=== PATIENT | male | born 1965 | race Caucasian/White ===

== ENCOUNTER → 2016-06-03 | Outpatient (CLI) | payer BC, OTHER | LOC: M LAB 11:16 | PROVIDERS: ATTEND Family Medicine | DX: E29.1 Testicular hypofunction (principal) ==

== ENCOUNTER → 2016-10-14 | Outpatient (CLI) | payer BC, OTHER | LOC: M LAB 15:36 | PROVIDERS: ATTEND Family Medicine | DX: E29.1 Testicular hypofunction (principal) ==

== ENCOUNTER → 2017-04-13 | Outpatient (CLI) | payer BC, OTHER | LOC: M LAB 11:09 | PROVIDERS: ATTEND Family Medicine | DX: E29.1 Testicular hypofunction (principal); E11.9 Type 2 diabetes mellitus without complications; R53.83 Other fatigue ==

== ENCOUNTER 2017-07-15 12:35 | Inpatient (IN) | payer BC, OTHER ==
[2017-07-15 13:50] LABS: BASO # 0.1 10^3/uL (0.0-0.2); BASO % 1.2 % (0.0-1.0); EOS # 0.2 10^3/uL (0.0-0.50); EOS % 3.3 % (0.0-3.0); HEMATOCRIT 53.3 % (42.0-52.0); IMMATURE GRANULOCYTE % 0.4 % (0-3.0); LYMPH # 2.2 10^3/uL (1.5-4.5); LYMPH % 32.9 % (24.0-44.0); MEAN CORPUSCULAR HEMOGLOBIN 28.5 pg (27.0-33.0); MEAN CORPUSCULAR HGB CONC 34.5 g/dl (32.0-36.5); MEAN CORPUSCULAR VOLUME 82.5 fl (80.0-96.0); MONO # 0.4 10^3/uL (0.0-0.8); MONO % 6.1 % (0.0-5.0); NEUTROPHILS # 3.8 10^3/uL (1.8-7.7); NEUTROPHILS % 56.1 % (36.0-66.0); PLATELET COUNT, AUTOMATED 255 10^3/uL (150-450); RED BLOOD COUNT 6.46 10^6/uL (4.30-6.10); RED CELL DISTRIBUTION WIDTH 12.7 % (11.5-14.5); WHITE BLOOD COUNT 6.7 10^3/uL (4.0-10.0)
[2017-07-15 13:51] LABS: HEMOGLOBIN 18.4 g/dl (14.0-18.0); SUSPECT SAMPLE POS FLAG
[2017-07-15 13:52] LABS: INR 0.93; PROTHROMBIN TIME 12.5 SECONDS (12.4-14.5)
[2017-07-15 13:53] LABS: PARTIAL THROMBOPLASTIN TIME 26.8 SECONDS (26.8-37.9)
[2017-07-15 14:05] LABS: ANION GAP 6 MEQ/L (8-16); BLOOD UREA NITROGEN 18 MG/DL (7-18); CALCIUM LEVEL 9.4 MG/DL (8.5-10.1); CARBON DIOXIDE LEVEL 29 MEQ/L (21-32); CHLORIDE LEVEL 102 MEQ/L (98-107); CPK CREATINE PHOSPHOKINASE 70 U/L (39-308); CREATININE FOR GFR 1.28 MG/DL (0.70-1.30); GLOMERULAR FILTRATION RATE > 60.0 (>56); GLUCOSE, FASTING 294 MG/DL (70-100); POTASSIUM SERUM 4.2 MEQ/L (3.5-5.1); SODIUM LEVEL 137 MEQ/L (136-145); TROPONIN I < 0.02 NG/ML (< 0.10)
[2017-07-15 14:06] LABS: MB/CK RELATIVE INDEX 1.42 (< OR =4)
[2017-07-15] MEDS: ASPIRIN 81 MG CHEW TABLET PO (14:31)
[2017-07-15] MEDS ORDERED: DEXTROSE 50% 50 ML SYRINGE IV (15:15)
[2017-07-15] MEDS ORDERED: GLUCOSE 4 GM CHEW TABLET PO (15:15)
[2017-07-15] MEDS ORDERED: GLUCAGON FOR INJ 1 MG VIAL (J1610) SC (15:15)
[2017-07-15 17:38] LABS: BEDSIDE GLUCOSE 216 MG/DL (70-105)
[2017-07-15] MEDS: HumaLOG INSULIN (NovoLOG) PER UNIT SC ×2 (18:19→20:35)
[2017-07-15 20:11] LABS: CPK CREATINE PHOSPHOKINASE 65 U/L (39-308); MB/CK RELATIVE INDEX 1.53 (< OR =4); TROPONIN I < 0.02 NG/ML (< 0.10)
[2017-07-15] MEDS: ATORVASTATIN 20 MG TAB PO (20:34)
[2017-07-16 01:53] LABS: BEDSIDE GLUCOSE 256 MG/DL (70-105)
[2017-07-16 03:22] LABS: BASO # 0.1 10^3/uL (0.0-0.2); BASO % 1.1 % (0.0-1.0); EOS # 0.3 10^3/uL (0.0-0.50); EOS % 3.3 % (0.0-3.0); HEMATOCRIT 49.8 % (42.0-52.0); HEMOGLOBIN 16.9 g/dl (14.0-18.0); IMMATURE GRANULOCYTE % 0.3 % (0-3.0); LYMPH # 3.2 10^3/uL (1.5-4.5); LYMPH % 39.9 % (24.0-44.0); MEAN CORPUSCULAR HGB CONC 33.9 g/dl (32.0-36.5); MEAN CORPUSCULAR VOLUME 82.5 fl (80.0-96.0); MONO # 0.5 10^3/uL (0.0-0.8); MONO % 6.5 % (0.0-5.0); NEUTROPHILS # 3.9 10^3/uL (1.8-7.7); NEUTROPHILS % 48.9 % (36.0-66.0); PLATELET COUNT, AUTOMATED 263 10^3/uL (150-450); RED BLOOD COUNT 6.04 10^6/uL (4.30-6.10); RED CELL DISTRIBUTION WIDTH 12.9 % (11.5-14.5)
[2017-07-16 04:05] LABS: ALBUMIN 3.7 GM/DL (3.2-5.2); ALBUMIN/GLOBULIN RATIO 1.23 (1.00-1.93); ALKALINE PHOSPHATASE 75 U/L (45-117); ALT/SGPT 31 U/L (12-78); ANION GAP 8 MEQ/L (8-16); AST/SGOT 19 U/L (7-37); BILIRUBIN,TOTAL 1.1 MG/DL (0.2-1.0); BLOOD UREA NITROGEN 20 MG/DL (7-18); CALCIUM LEVEL 8.3 MG/DL (8.5-10.1); CARBON DIOXIDE LEVEL 27 MEQ/L (21-32); CHLORIDE LEVEL 105 MEQ/L (98-107); CHOLESTEROL LEVEL 164 MG/DL (<200); CHOLESTEROL RISK RATIO 3.565 (<5); CPK CREATINE PHOSPHOKINASE 70 U/L (39-308); CREATININE FOR GFR 1.23 MG/DL (0.70-1.30); FREE T4 0.57 NG/DL (0.76-1.46); GLOMERULAR FILTRATION RATE > 60.0 (>56); GLUCOSE, FASTING 209 MG/DL (70-100); HDL CHOLESTEROL 46 MG/DL (>40); NON-HDL-C 118 MG/DL; SODIUM LEVEL 140 MEQ/L (136-145); TOTAL PROTEIN 6.7 GM/DL (6.4-8.2); TRIGLYCERIDES LEVEL 135 MG/DL (<150); TROPONIN I < 0.02 NG/ML (< 0.10)
[2017-07-16 04:06] LABS: MB/CK RELATIVE INDEX 1.42 (< OR =4)
[2017-07-16] MEDS: LEVOTHYROXINE 25MCG TABLET (0.025MG) PO (06:01)
[2017-07-16 08:21] LABS: BEDSIDE GLUCOSE 228 MG/DL (70-105)
[2017-07-16] MEDS: ALLOPURINOL 300 MG TAB PO (08:24)
[2017-07-16] MEDS: ASPIRIN 81 MG CHEW TABLET PO (08:24)
[2017-07-16] MEDS: HumaLOG INSULIN (NovoLOG) PER UNIT SC ×4 (08:25→20:46)
[2017-07-16] MEDS ORDERED: ASPIRIN 81 MG CHEW TABLET PO (09:00)
[2017-07-16 10:42] LABS: CPK CREATINE PHOSPHOKINASE 71 U/L (39-308); TROPONIN I < 0.02 NG/ML (< 0.10)
[2017-07-16 11:32] LABS: BEDSIDE GLUCOSE 267 MG/DL (70-105)
[2017-07-16] MEDS ORDERED: SLF 3 ML SYR IV (15:15)
[2017-07-16 20:22] LABS: BEDSIDE GLUCOSE 206 MG/DL (70-105)
[2017-07-16 20:46] LABS: BEDSIDE GLUCOSE 301 MG/DL (70-105)
[2017-07-16] MEDS: ATORVASTATIN 20 MG TAB PO (20:46)
[2017-07-16] MEDS: SLF 3 ML SYR IV (20:47)
[2017-07-16] MEDS: LEVEMIR (INSULIN DETEMIR) 1 UNITS/0.01ML SC (20:47)
[2017-07-17] MEDS: LEVOTHYROXINE 25MCG TABLET (0.025MG) PO (05:30)
[2017-07-17] MEDS: SLF 3 ML SYR IV (05:30)
[2017-07-17 05:56] LABS: BASO # 0.1 10^3/uL (0.0-0.2); BASO % 1.6 % (0.0-1.0); EOS # 0.3 10^3/uL (0.0-0.50); EOS % 4.3 % (0.0-3.0); HEMATOCRIT 49.7 % (42.0-52.0); HEMOGLOBIN 17.2 g/dl (14.0-18.0); IMMATURE GRANULOCYTE % 0.6 % (0-3.0); LYMPH # 2.8 10^3/uL (1.5-4.5); LYMPH % 35.3 % (24.0-44.0); MEAN CORPUSCULAR HEMOGLOBIN 28.9 pg (27.0-33.0); MEAN CORPUSCULAR HGB CONC 34.6 g/dl (32.0-36.5); MEAN CORPUSCULAR VOLUME 83.4 fl (80.0-96.0); MONO # 0.5 10^3/uL (0.0-0.8); MONO % 6.8 % (0.0-5.0); NEUTROPHILS # 4.1 10^3/uL (1.8-7.7); NEUTROPHILS % 51.4 % (36.0-66.0); PLATELET COUNT, AUTOMATED 250 10^3/uL (150-450); RED BLOOD COUNT 5.96 10^6/uL (4.30-6.10); RED CELL DISTRIBUTION WIDTH 12.7 % (11.5-14.5)
[2017-07-17 06:30] LABS: ALBUMIN 3.4 GM/DL (3.2-5.2); ALBUMIN/GLOBULIN RATIO 0.97 (1.00-1.93); ALKALINE PHOSPHATASE 74 U/L (45-117); ALT/SGPT 26 U/L (12-78); ANION GAP 5 MEQ/L (8-16); AST/SGOT 16 U/L (7-37); BILIRUBIN,TOTAL 1.2 MG/DL (0.2-1.0); BLOOD UREA NITROGEN 21 MG/DL (7-18); CALCIUM LEVEL 8.3 MG/DL (8.5-10.1); CARBON DIOXIDE LEVEL 28 MEQ/L (21-32); CHLORIDE LEVEL 107 MEQ/L (98-107); CREATININE FOR GFR 1.24 MG/DL (0.70-1.30); GLOMERULAR FILTRATION RATE > 60.0 (>56); GLUCOSE, FASTING 203 MG/DL (70-100); SODIUM LEVEL 140 MEQ/L (136-145); TOTAL PROTEIN 6.9 GM/DL (6.4-8.2)
[2017-07-17] MEDS: ASPIRIN 81 MG CHEW TABLET PO (07:54)
[2017-07-17] MEDS: HumaLOG INSULIN (NovoLOG) PER UNIT SC (07:54)
[2017-07-17] MEDS: ALLOPURINOL 300 MG TAB PO (07:54)
[2017-07-17 10:30] LABS: ESTIMATED AVERAGE GLUCOSE 258 MG/DL (60-110); HEMOGLOBIN A1c 10.6 %
== END 2017-07-17 11:37 | disposition home or self-care (01) | DRG 47 ==
LOC: M ED 12:35 → M ED INP 15:54 → M PCU 17:22
DX: G45.9 Transient cerebral ischemic attack, unspecified (principal); I10 Essential (primary) hypertension; E78.5 Hyperlipidemia, unspecified; M10.9 Gout, unspecified; E11.9 Type 2 diabetes mellitus without complications; E66.9 Obesity, unspecified; Z68.30 Body mass index [BMI] 30.0-30.9, adult; E03.9 Hypothyroidism, unspecified; Z79.4 Long term (current) use of insulin; Z79.899 Other long term (current) drug therapy

== ENCOUNTER 2017-07-21 16:24 | Inpatient (IN) | payer BC, OTHER ==
[2017-07-21] MEDS: NS 1,000 ML IV (18:11)
[2017-07-21 18:15] LABS: BEDSIDE GLUCOSE 178 MG/DL (70-105)
[2017-07-21 18:16] LABS: BASO # 0.1 10^3/uL (0.0-0.2); BASO % 0.8 % (0.0-1.0); EOS # 0.2 10^3/uL (0.0-0.50); HEMATOCRIT 51.2 % (42.0-52.0); HEMOGLOBIN 17.6 g/dl (14.0-18.0); IMMATURE GRANULOCYTE % 0.3 % (0-3.0); LYMPH # 2.4 10^3/uL (1.5-4.5); LYMPH % 34.3 % (24.0-44.0); MEAN CORPUSCULAR HEMOGLOBIN 28.3 pg (27.0-33.0); MEAN CORPUSCULAR HGB CONC 34.4 g/dl (32.0-36.5); MEAN CORPUSCULAR VOLUME 82.2 fl (80.0-96.0); MONO # 0.5 10^3/uL (0.0-0.8); MONO % 6.6 % (0.0-5.0); NEUTROPHILS # 3.9 10^3/uL (1.8-7.7); PLATELET COUNT, AUTOMATED 284 10^3/uL (150-450); RED BLOOD COUNT 6.23 10^6/uL (4.30-6.10); RED CELL DISTRIBUTION WIDTH 12.8 % (11.5-14.5); WHITE BLOOD COUNT 7.1 10^3/uL (4.0-10.0)
[2017-07-21 18:43] LABS: AMPHETAMINES LEVEL URINE NEGATIVE (NEGATIVE); BARBITURATES URINE NEGATIVE (NEGATIVE); BENZODIAZEPINES URINE NEGATIVE (NEGATIVE); CANNABINOIDS URINE NEGATIVE (NEGATIVE); COCAINE METABOLITE URINE NEGATIVE (NEGATIVE); METHADONE URINE NEGATIVE (NEGATIVE); OPIATES URINE NEGATIVE (NEGATIVE); PHENCYCLIDINE URINE NEGATIVE (NEGATIVE)
[2017-07-21 18:52] LABS: ALBUMIN 4.2 GM/DL (3.2-5.2); ALBUMIN/GLOBULIN RATIO 1.24 (1.00-1.93); ALKALINE PHOSPHATASE 75 U/L (45-117); ALT/SGPT 24 U/L (12-78); ANION GAP 9 MEQ/L (8-16); AST/SGOT 21 U/L (7-37); BILIRUBIN,DIRECT 0.4 MG/DL (0.0-0.2); BILIRUBIN,TOTAL 1.9 MG/DL (0.2-1.0); BLOOD UREA NITROGEN 23 MG/DL (7-18); CALCIUM LEVEL 9.7 MG/DL (8.5-10.1); CARBON DIOXIDE LEVEL 30 MEQ/L (21-32); CHLORIDE LEVEL 98 MEQ/L (98-107); CPK CREATINE PHOSPHOKINASE 137 U/L (39-308); CREATININE FOR GFR 1.23 MG/DL (0.70-1.30); GLOMERULAR FILTRATION RATE > 60.0 (>56); GLUCOSE, FASTING 159 MG/DL (70-100); POTASSIUM SERUM 4.1 MEQ/L (3.5-5.1); SALICYLATE LEVEL < 1.7 MG/DL (5.0-30.0); SODIUM LEVEL 137 MEQ/L (136-145); TOTAL PROTEIN 7.6 GM/DL (6.4-8.2); TROPONIN I < 0.02 NG/ML (< 0.10)
[2017-07-21 18:58] LABS: MB/CK RELATIVE INDEX 0.72 (< OR =4)
[2017-07-21 19:01] LABS: ACETAMINOPHEN LEVEL < 2.0 UG/ML (10.0-30.0); ETHYL ALCOHOL (ETHANOL) < 0.003 % (0.000-0.010)
[2017-07-21] MEDS ORDERED: GLUCOSE 4 GM CHEW TABLET PO (20:45)
[2017-07-21] MEDS ORDERED: ACETAMINOPHEN TAB 650MG DOSE (2X325MG) PO (20:45)
[2017-07-21] MEDS ORDERED: DEXTROSE 50% 50 ML SYRINGE IV (20:45)
[2017-07-21] MEDS ORDERED: BISACODYL 5 MG TAB PO (20:45)
[2017-07-21] MEDS ORDERED: ONDANSETRON 4 MG TAB (S0181) PO (20:45)
[2017-07-21] MEDS ORDERED: GLUCAGON FOR INJ 1 MG VIAL (J1610) SC (20:45)
[2017-07-21 21:25] LABS: FREE T4 0.76 NG/DL (0.76-1.46)
[2017-07-21] MEDS: HumaLOG INSULIN (NovoLOG) PER UNIT SC (23:01)
[2017-07-21] MEDS: ATORVASTATIN 20 MG TAB PO (23:07)
[2017-07-21] MEDS: LOSARTAN 50 MG TAB PO (23:07)
[2017-07-21] MEDS: LEVEMIR (INSULIN DETEMIR) 1 UNITS/0.01ML SC (23:08)
[2017-07-21] MEDS: hydroCHLOROthiazide 25 MG TAB PO (23:08)
[2017-07-22 00:23] LABS: CPK CREATINE PHOSPHOKINASE 207 U/L (39-308); MB/CK RELATIVE INDEX 0.48 (< OR =4); TROPONIN I < 0.02 NG/ML (< 0.10)
[2017-07-22 03:01] LABS: BEDSIDE GLUCOSE 143 MG/DL (70-105)
[2017-07-22] MEDS: LEVOTHYROXINE 50MCG TABLET (0.05MG) PO (06:27)
[2017-07-22 06:59] LABS: BASO # 0.1 10^3/uL (0.0-0.2); BASO % 1.1 % (0.0-1.0); EOS # 0.2 10^3/uL (0.0-0.50); HEMOGLOBIN 17.7 g/dl (14.0-18.0); IMMATURE GRANULOCYTE % 0.4 % (0-3.0); LYMPH # 2.6 10^3/uL (1.5-4.5); MEAN CORPUSCULAR HEMOGLOBIN 28.5 pg (27.0-33.0); MEAN CORPUSCULAR HGB CONC 34.7 g/dl (32.0-36.5); MEAN CORPUSCULAR VOLUME 82.3 fl (80.0-96.0); MONO # 0.5 10^3/uL (0.0-0.8); MONO % 6.7 % (0.0-5.0); NEUTROPHILS % 53.8 % (36.0-66.0); PLATELET COUNT, AUTOMATED 279 10^3/uL (150-450); RED CELL DISTRIBUTION WIDTH 12.7 % (11.5-14.5); WHITE BLOOD COUNT 7.4 10^3/uL (4.0-10.0)
[2017-07-22 07:18] LABS: ALBUMIN 3.9 GM/DL (3.2-5.2); ALBUMIN/GLOBULIN RATIO 1.08 (1.00-1.93); ALKALINE PHOSPHATASE 71 U/L (45-117); ALT/SGPT 21 U/L (12-78); ANION GAP 8 MEQ/L (8-16); AST/SGOT 13 U/L (7-37); BILIRUBIN,TOTAL 2.2 MG/DL (0.2-1.0); BLOOD UREA NITROGEN 20 MG/DL (7-18); CALCIUM LEVEL 9.2 MG/DL (8.5-10.1); CARBON DIOXIDE LEVEL 28 MEQ/L (21-32); CHLORIDE LEVEL 102 MEQ/L (98-107); CPK CREATINE PHOSPHOKINASE 94 U/L (39-308); CREATININE FOR GFR 1.19 MG/DL (0.70-1.30); GLOMERULAR FILTRATION RATE > 60.0 (>56); GLUCOSE, FASTING 184 MG/DL (70-100); POTASSIUM SERUM 3.7 MEQ/L (3.5-5.1); SODIUM LEVEL 138 MEQ/L (136-145); TOTAL PROTEIN 7.5 GM/DL (6.4-8.2); TROPONIN I < 0.02 NG/ML (< 0.10)
[2017-07-22 07:23] LABS: MAGNESIUM LEVEL 1.8 MG/DL (1.8-2.4); MB/CK RELATIVE INDEX 1.06 (< OR =4)
[2017-07-22] MEDS: COLCHICINE 0.6 MG TAB PO (08:18)
[2017-07-22] MEDS: HumaLOG INSULIN (NovoLOG) PER UNIT SC ×4 (08:18→20:53)
[2017-07-22] MEDS: ASPIRIN 81 MG CHEW TABLET PO (08:18)
[2017-07-22] MEDS: ALLOPURINOL 300 MG TAB PO (08:18)
[2017-07-22] MEDS: ENOXAPARIN 40 MG/0.4 ML SYRINGE (J1650) SC (08:18)
[2017-07-22] MEDS: metFORMIN (GLUCOPHAGE) 1000 MG TABLET PO ×2 (08:18→17:49)
[2017-07-22 11:57] LABS: BEDSIDE GLUCOSE 143 MG/DL (70-105)
[2017-07-22] MEDS ORDERED: SIMVASTATIN 40 MG TAB PO (12:15)
[2017-07-22] MEDS: CLOPIDOGREL 75 MG TAB PO (12:35)
[2017-07-22 17:25] LABS: BEDSIDE GLUCOSE 99 MG/DL (70-105)
[2017-07-22 21:02] LABS: BEDSIDE GLUCOSE 149 MG/DL (70-105)
[2017-07-22] MEDS: ATORVASTATIN 20 MG TAB PO (21:07)
[2017-07-22] MEDS: LEVEMIR (INSULIN DETEMIR) 1 UNITS/0.01ML SC (21:08)
[2017-07-23] MEDS: LEVOTHYROXINE 50MCG TABLET (0.05MG) PO (05:30)
[2017-07-23 06:19] LABS: BASO # 0.1 10^3/uL (0.0-0.2); EOS # 0.3 10^3/uL (0.0-0.50); EOS % 3.8 % (0.0-3.0); HEMATOCRIT 53.2 % (42.0-52.0); HEMOGLOBIN 18.2 g/dl (14.0-18.0); IMMATURE GRANULOCYTE % 0.4 % (0-3.0); LYMPH # 3.1 10^3/uL (1.5-4.5); LYMPH % 40.1 % (24.0-44.0); MEAN CORPUSCULAR HEMOGLOBIN 28.3 pg (27.0-33.0); MEAN CORPUSCULAR HGB CONC 34.2 g/dl (32.0-36.5); MEAN CORPUSCULAR VOLUME 82.9 fl (80.0-96.0); MONO # 0.6 10^3/uL (0.0-0.8); MONO % 7.3 % (0.0-5.0); NEUTROPHILS # 3.7 10^3/uL (1.8-7.7); NEUTROPHILS % 47.4 % (36.0-66.0); PLATELET COUNT, AUTOMATED 280 10^3/uL (150-450); RED BLOOD COUNT 6.42 10^6/uL (4.30-6.10); RED CELL DISTRIBUTION WIDTH 12.8 % (11.5-14.5); WHITE BLOOD COUNT 7.8 10^3/uL (4.0-10.0)
[2017-07-23 06:21] LABS: SUSPECT SAMPLE POS FLAG
[2017-07-23 06:31] LABS: ALBUMIN 3.9 GM/DL (3.2-5.2); ALBUMIN/GLOBULIN RATIO 1.11 (1.00-1.93); ALKALINE PHOSPHATASE 71 U/L (45-117); ALT/SGPT 23 U/L (12-78); ANION GAP 6 MEQ/L (8-16); AST/SGOT 14 U/L (7-37); BILIRUBIN,TOTAL 1.8 MG/DL (0.2-1.0); BLOOD UREA NITROGEN 22 MG/DL (7-18); CALCIUM LEVEL 9.1 MG/DL (8.5-10.1); CARBON DIOXIDE LEVEL 30 MEQ/L (21-32); CHLORIDE LEVEL 102 MEQ/L (98-107); CREATININE FOR GFR 1.38 MG/DL (0.70-1.30); GLOMERULAR FILTRATION RATE 57.8 (>56); GLUCOSE, FASTING 98 MG/DL (70-100); MAGNESIUM LEVEL 1.8 MG/DL (1.8-2.4); POTASSIUM SERUM 3.6 MEQ/L (3.5-5.1); SODIUM LEVEL 138 MEQ/L (136-145); TOTAL PROTEIN 7.4 GM/DL (6.4-8.2)
[2017-07-23] MEDS: NS 0.45% 1,000 ML IV (06:59)
[2017-07-23] MEDS: HumaLOG INSULIN (NovoLOG) PER UNIT SC ×2 (07:30→11:54)
[2017-07-23] MEDS: CLOPIDOGREL 75 MG TAB PO (08:27)
[2017-07-23] MEDS: ASPIRIN 81 MG CHEW TABLET PO (08:27)
[2017-07-23] MEDS: ENOXAPARIN 40 MG/0.4 ML SYRINGE (J1650) SC (08:28)
[2017-07-23] MEDS: metFORMIN (GLUCOPHAGE) 1000 MG TABLET PO (08:28)
[2017-07-23] MEDS: COLCHICINE 0.6 MG TAB PO (09:46)
[2017-07-23] MEDS: ALLOPURINOL 300 MG TAB PO (09:46)
[2017-07-23 11:36] LABS: ANION GAP 7 MEQ/L (8-16); BLOOD UREA NITROGEN 20 MG/DL (7-18); CALCIUM LEVEL 9.1 MG/DL (8.5-10.1); CARBON DIOXIDE LEVEL 28 MEQ/L (21-32); CHLORIDE LEVEL 103 MEQ/L (98-107); CREATININE FOR GFR 1.18 MG/DL (0.70-1.30); GLOMERULAR FILTRATION RATE > 60.0 (>56); GLUCOSE, FASTING 136 MG/DL (70-100); POTASSIUM SERUM 3.6 MEQ/L (3.5-5.1); SODIUM LEVEL 138 MEQ/L (136-145)
[2017-07-23 11:54] LABS: BEDSIDE GLUCOSE 130 MG/DL (70-105)
[2017-07-23] MEDS ORDERED: SIMVASTATIN 40 MG TAB PO (21:00)
== END 2017-07-23 13:47 | disposition home or self-care (01) | DRG 45 ==
LOC: M ED 16:24 → M ED INP 21:06 → M MSPAV 22:42
DX: I63.9 Cerebral infarction, unspecified (principal); L40.50 Arthropathic psoriasis, unspecified; I10 Essential (primary) hypertension; R20.0 Anesthesia of skin; E78.5 Hyperlipidemia, unspecified; E11.9 Type 2 diabetes mellitus without complications; E66.9 Obesity, unspecified; I69.398 Other sequelae of cerebral infarction; E03.9 Hypothyroidism, unspecified; Z79.82 Long term (current) use of aspirin; Z79.4 Long term (current) use of insulin; Z79.899 Other long term (current) drug therapy

== ENCOUNTER 2018-04-13 19:13 | Emergency (ER) | payer OTHER, BC | END 2018-04-13 19:25 | disposition home or self-care (01) | LOC: M ED 19:13 | DX: S23.3XXA Sprain of ligaments of thoracic spine, initial encounter (principal); M25.511 Pain in right shoulder; Y92.89 Other specified places as the place of occurrence of the external cause; W19.XXXA Unspecified fall, initial encounter; I10 Essential (primary) hypertension; E78.5 Hyperlipidemia, unspecified; E03.9 Hypothyroidism, unspecified; Z86.73 Personal history of transient ischemic attack (TIA), and cerebral infarction without residual deficits | CPT/HCPCS: 73030 ==

== ENCOUNTER 2018-06-30 15:25 | Emergency (ER) | payer OTHER, BC ==
[~2018-06-30] VITALS: Ht 167.6 cm; Wt 93.2 kg
[~2018-06-30 15:25] MED LIST: AMOX500C PO; ASPI81CH PO; ASPI81TA21 PO; ATOR1TAB21 PO; ATOR40TA75 PO; AZIT-12 PO; CHIL81CH2 PO; COLC1TAB13 PO; CYCL10TA PO; ENBR50IN2 SC; INSULANT SC; LEVO125T4; LEVO25TA5 PO; LEVO50TA5 PO; LOSA100T5 PO; LOSARTAN/HCT PO; METF10004 PO; MOBI4TAB PO; PLAV1TAB2 PO; TEST200I14 IM; VIAG100T PO; ZYLO300T6 PO
[2018-06-30 15:26] VITALS: BP 138/74
[2018-06-30] MEDS ORDERED: NAPR-50 PO (16:37)
[2018-06-30] MEDS ORDERED: CYCL10TA PO (16:37)
== END 2018-06-30 16:40 | disposition home or self-care (01) ==
LOC: M ED 15:25
DX: S39.012A Strain of muscle, fascia and tendon of lower back, initial encounter (principal); S80.02XA Contusion of left knee, initial encounter; W01.0XXA Fall on same level from slipping, tripping and stumbling without subsequent striking against object, initial encounter; Y92.89 Other specified places as the place of occurrence of the external cause; Y99.0 Civilian activity done for income or pay; I10 Essential (primary) hypertension; E07.9 Disorder of thyroid, unspecified; E78.9 Disorder of lipoprotein metabolism, unspecified; Z79.899 Other long term (current) drug therapy; Z79.4 Long term (current) use of insulin; Z79.01 Long term (current) use of anticoagulants

== ENCOUNTER → 2018-07-13 | Outpatient (CLI) | payer BC, OTHER ==
[~2018-07-13] MED LIST changes: +NAPR-50 PO
[2018-07-13 11:24] LABS: HEMATOCRIT 46.6 % (42.0-52.0); HEMOGLOBIN 15.5 g/dl (13.5-17.5); MEAN CORPUSCULAR HEMOGLOBIN 28.7 pg (27.0-33.0); MEAN CORPUSCULAR HGB CONC 33.3 g/dl (32.0-36.5); MEAN CORPUSCULAR VOLUME 86.1 fl (80.0-96.0); PLATELET COUNT, AUTOMATED 286 10^3/uL (150-450); RED BLOOD COUNT 5.41 10^6/uL (4.30-6.10); WHITE BLOOD COUNT 5.8 10^3/uL (4.0-10.0)
[2018-07-13 12:18] LABS: ALBUMIN 4.1 GM/DL (3.2-5.2); ALT/SGPT 25 U/L (12-78); BILIRUBIN,TOTAL 1.3 MG/DL (0.2-1.0); BLOOD UREA NITROGEN 20 MG/DL (7-18); CALCIUM LEVEL 9.1 MG/DL (8.5-10.1); CARBON DIOXIDE LEVEL 30 MEQ/L (21-32); CHLORIDE LEVEL 106 MEQ/L (98-107); CHOLESTEROL LEVEL 128 MG/DL (<200); CHOLESTEROL RISK RATIO 2.909 (<5); CREATININE FOR GFR 1.15 MG/DL (0.70-1.30); GLOMERULAR FILTRATION RATE > 60.0 (>56); GLUCOSE, FASTING 105 MG/DL (70-100); HDL CHOLESTEROL 44 MG/DL (>40); LDL CHOLESTEROL 66 MG/DL (<100); NON-HDL-C 84 MG/DL; POTASSIUM SERUM 5.3 MEQ/L (3.5-5.1); PROSTATIC SPECIFIC AG MONITOR 0.28 NG/ML (< 4.00); SODIUM LEVEL 142 MEQ/L (136-145); TESTOSTERONE 514 NG/DL (241-827); TOTAL 25(OH) VITAMIN D 17.7 NG/ML (30.0-100.0); TOTAL PROTEIN 7.3 GM/DL (6.4-8.2); TRIGLYCERIDES LEVEL 88 MG/DL (<150)
[2018-07-13 14:11] LABS: HEMOGLOBIN A1c 7.2 %
== END ==
LOC: M LAB 10:30
PROVIDERS: ATTEND Family Medicine
DX: R53.83 Other fatigue (principal); I10 Essential (primary) hypertension; E11.9 Type 2 diabetes mellitus without complications

== ENCOUNTER → 2019-03-03 | Outpatient (CLI) | payer BC, OTHER ==
[~2019-03-03] MED LIST changes: +ASPI-286 PO; -ASPI81CH PO; +ASPI81CH49 PO; -CHIL81CH2 PO; -ENBR50IN2 SC; +ETAN50SY SC; -NAPR-50 PO; +NAPR-837 PO
[2019-03-03 11:32] LABS: HEMATOCRIT 44.1 % (42.0-52.0); HEMOGLOBIN 14.7 g/dl (13.5-17.5); MEAN CORPUSCULAR HEMOGLOBIN 28.7 pg (27.0-33.0); MEAN CORPUSCULAR HGB CONC 33.3 g/dl (32.0-36.5); PLATELET COUNT, AUTOMATED 281 10^3/uL (150-450); RED BLOOD COUNT 5.13 10^6/uL (4.30-6.10); WHITE BLOOD COUNT 6.6 10^3/uL (4.0-10.0)
[2019-03-03 12:16] LABS: ALBUMIN 4.3 GM/DL (3.2-5.2); ALT/SGPT 17 U/L (12-78); BILIRUBIN,TOTAL 1.3 MG/DL (0.2-1.0); BLOOD UREA NITROGEN 18 MG/DL (7-18); CARBON DIOXIDE LEVEL 28 MEQ/L (21-32); CHLORIDE LEVEL 107 MEQ/L (98-107); CHOLESTEROL LEVEL 117 MG/DL (<200); CHOLESTEROL RISK RATIO 2.543 (<5); CREATININE FOR GFR 1.28 MG/DL (0.70-1.30); GLOMERULAR FILTRATION RATE > 60.0 (>56); GLUCOSE, FASTING 110 MG/DL (70-100); HDL CHOLESTEROL 46 MG/DL (>40); LDL CHOLESTEROL 57 MG/DL (<100); NON-HDL-C 71 MG/DL; POTASSIUM SERUM 4.7 MEQ/L (3.5-5.1); SODIUM LEVEL 141 MEQ/L (136-145); TESTOSTERONE 568 NG/DL (241-827); TOTAL PROTEIN 7.3 GM/DL (6.4-8.2); TRIGLYCERIDES LEVEL 69 MG/DL (<150)
[2019-03-03 12:53] LABS: HEMOGLOBIN A1c 7.6 %
== END ==
LOC: M LAB 10:37
PROVIDERS: ATTEND Family Medicine
DX: I10 Essential (primary) hypertension (principal); R53.83 Other fatigue
CPT/HCPCS: 36415; 80053; 80061; 83036; 84403; 84443; 85027; G0103

== ENCOUNTER → 2019-09-29 | Outpatient (CLI) | payer BC, OTHER ==
[~2019-09-29] MED LIST changes: +CYCL-707 PO; -CYCL10TA PO
[2019-09-29 10:14] LABS: HEMATOCRIT 43.6 % (42.0-52.0); MEAN CORPUSCULAR HEMOGLOBIN 29.2 pg (27.0-33.0); MEAN CORPUSCULAR HGB CONC 34.4 g/dl (32.0-36.5); PLATELET COUNT, AUTOMATED 289 10^3/uL (150-450); RED BLOOD COUNT 5.13 10^6/uL (4.30-6.10)
[2019-09-29 10:35] LABS: HEMOGLOBIN A1c 8.4 %
[2019-09-29 10:58] LABS: ALBUMIN 4.1 GM/DL (3.2-5.2); BILIRUBIN,TOTAL 1.4 MG/DL (0.2-1.0); CHOLESTEROL RISK RATIO 2.928 (<5); CREATININE FOR GFR 1.41 MG/DL (0.70-1.30); POTASSIUM SERUM 3.9 MEQ/L (3.5-5.1); PROSTATIC SPECIFIC AG MONITOR 0.3 NG/ML (< 4.00); THYROID STIMULATING HORMONE 7.25 uIU/ML (0.358-3.740); TOTAL PROTEIN 7.2 GM/DL (6.4-8.2)
== END ==
LOC: M LAB 09:32
PROVIDERS: ATTEND Family Medicine
DX: E11.9 Type 2 diabetes mellitus without complications (principal); I10 Essential (primary) hypertension; R53.83 Other fatigue; E03.9 Hypothyroidism, unspecified

== ENCOUNTER → 2020-07-16 | Outpatient (CLI) | payer BC, OTHER ==
[~2020-07-16] MED LIST changes: +COLC0.6T47 PO; -COLC1TAB13 PO
[2020-07-16 13:04] LABS: HEMATOCRIT 42.2 % (42.0-52.0); HEMOGLOBIN 13.8 g/dl (13.5-17.5); MEAN CORPUSCULAR HGB CONC 32.7 g/dl (32.0-36.5); MEAN CORPUSCULAR VOLUME 88.7 fl (80.0-96.0); PLATELET COUNT, AUTOMATED 278 10^3/uL (150-450); RED BLOOD COUNT 4.76 10^6/uL (4.30-6.10); WHITE BLOOD COUNT 6.6 10^3/uL (4.0-10.0)
[2020-07-16 14:04] LABS: ALBUMIN 4.1 GM/DL (3.2-5.2); CALCIUM LEVEL 9.1 MG/DL (8.5-10.1); CHOLESTEROL RISK RATIO 2.955 (<5); CREATININE FOR GFR 1.52 MG/DL (0.70-1.30); GLOMERULAR FILTRATION RATE 51.1 (>56); POTASSIUM SERUM 4.7 MEQ/L (3.5-5.1); PROSTATIC SPECIFIC AG MONITOR 0.33 NG/ML (< 4.00); THYROID STIMULATING HORMONE 1.62 uIU/ML (0.358-3.740)
[2020-07-16 14:26] LABS: HEMOGLOBIN A1c 5.5 %
--- NOTE | 2020-07-16 16:57 | ECGEPIP ---
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 Electronically Signed on 07-16-2020 16:57:32 EDT by Rios Prado
--- NOTE | 2020-07-16 19:59 | REP ---
INDICATION: HTN,FATIGUE,DM, LAB 1ST EKG 2ND THEN XR. COMPARISON: PA and lateral chest dated 07/27/2015. TECHNIQUE: Upright PA and lateral chest. FINDINGS: The lung perez are clear. Cardiac size is normal. The zachery, mediastinum and skeletal structures are unremarkable. IMPRESSION: Essentially negative PA and lateral chest There is no interval change. <Electronically signed by Laron Tavarez > 07/16/201954
== END ==
LOC: M LAB 11:55
PROVIDERS: ATTEND Family Medicine
DX: R53.83 Other fatigue (principal); I10 Essential (primary) hypertension; E11.9 Type 2 diabetes mellitus without complications

== ENCOUNTER → 2020-11-21 | Outpatient (CLI) | payer BC, OTHER ==
[2020-11-21 15:15] LABS: APPEARANCE, URINE CLEAR (CLEAR); BACTERIA, URINE AUTO NEGATIVE (NEGATIVE); BILIRUBIN, URINE AUTO NEGATIVE (NEGATIVE); BLOOD, URINE BLOOD NEGATIVE (NEGATIVE); COLOR, URINE STRAW (YELLOW); GLUCOSE, URINE (UA) AUTO NEGATIVE (NEGATIVE); KETONE, URINE AUTO NEGATIVE (NEGATIVE); LEUKOCYTE ESTERASE, URINE AUTO NEGATIVE (NEGATIVE); NITRITE, URINE AUTO NEGATIVE (NEGATIVE); PROTEIN, URINE AUTO NEGATIVE (NEGATIVE); RBC, URINE AUTO 0 /HPF (0-3); SPECIFIC GRAVITY URINE AUTO 1.004 (1.002-1.035); SQUAMOUS EPITHELIAL CELL UR AU 0 /HPF (0-6); UROBILINOGEN, URINE AUTO 0.2 mg/dL (0.0-2.0); WBC, URINE AUTO 0 /HPF (0-3)
[2020-11-21 15:18] LABS: BASO # 0.1 10^3/uL (0.0-0.2); BASO % 1.2 % (0.0-1.0); EOS # 0.3 10^3/uL (0.0-0.5); EOS % 3.7 % (0.0-3.0); HEMATOCRIT 42.6 % (42.0-52.0); HEMOGLOBIN 14.2 g/dl (13.5-17.5); LYMPH # 1.9 10^3/uL (1.5-5.0); LYMPH % 27.5 % (24.0-44.0); MEAN CORPUSCULAR HEMOGLOBIN 28.7 pg (27.0-33.0); MEAN CORPUSCULAR HGB CONC 33.3 g/dl (32.0-36.5); MEAN CORPUSCULAR VOLUME 86.1 fl (80.0-96.0); MONO # 0.6 10^3/uL (0.0-0.8); NEUTROPHILS # 4.1 10^3/uL (1.5-8.5); NEUTROPHILS % 59.3 % (36.0-66.0); PLATELET COUNT, AUTOMATED 268 10^3/uL (150-450); RED BLOOD COUNT 4.95 10^6/uL (4.30-6.10); WHITE BLOOD COUNT 6.8 10^3/uL (4.0-10.0)
[2020-11-21 15:33] LABS: INR 1.01; PROTHROMBIN TIME 13.5 SECONDS (12.5-14.3)
[2020-11-21 15:46] LABS: CALCIUM LEVEL 9.2 MG/DL (8.5-10.1); CREATININE FOR GFR 1.54 MG/DL (0.70-1.30); GLOMERULAR FILTRATION RATE 50.4 (>56); POTASSIUM SERUM 4.5 MEQ/L (3.5-5.1)
== END ==
LOC: M LAB 13:22
PROVIDERS: ATTEND Neurological Surgery
DX: I67.5 Moyamoya disease (principal)

== ENCOUNTER 2021-01-29 10:56 | Emergency (ER) | payer BC, OTHER ==
[~2021-01-29] VITALS: Ht 167.6 cm; Wt 87.0 kg
[2021-01-29] MEDS ORDERED: LOSA100T50 (12:09)
[2021-01-29 12:26] LABS: BASO # 0.1 10^3/uL (0.0-0.2); BASO % 1.3 % (0.0-1.0); EOS # 0.3 10^3/uL (0.0-0.5); EOS % 4.5 % (0.0-3.0); HEMOGLOBIN 13.6 g/dl (13.5-17.5); LYMPH # 1.7 10^3/uL (1.5-5.0); LYMPH % 30.7 % (24.0-44.0); MEAN CORPUSCULAR HEMOGLOBIN 28.3 pg (27.0-33.0); MEAN CORPUSCULAR HGB CONC 33.2 g/dl (32.0-36.5); MEAN CORPUSCULAR VOLUME 85.2 fl (80.0-96.0); MONO # 0.5 10^3/uL (0.0-0.8); MONO % 9.3 % (2.0-8.0); PLATELET COUNT, AUTOMATED 270 10^3/uL (150-450); RED BLOOD COUNT 4.81 10^6/uL (4.30-6.10); WHITE BLOOD COUNT 5.5 10^3/uL (4.0-10.0)
[2021-01-29] MEDS ORDERED: FUROSEMIDE 20MG/2ML VIAL (J1940) IV ONE (12:40)
[2021-01-29] MEDS ORDERED: LOSARTAN 50MG TABLET PO ONE (12:40)
[2021-01-29 13:00] LABS: CK-MB VALUE MASS 1.2 NG/ML (<3.6); CPK CREATINE PHOSPHOKINASE 113 U/L (39-308); MB/CK RELATIVE INDEX 1.06 (< OR =4); TROPONIN I < 0.02 NG/ML (< 0.10)
--- NOTE | 2021-01-29 13:25 | REP ---
INDICATION: htn. COMPARISON: 07/16/2020 TECHNIQUE: PA and lateral FINDINGS: The superior mediastinal structures are midline. The cardiac silhouette is unremarkable in size, shape, and position. The diaphragmatic surfaces of the lungs are regular, and the costophrenic angles are clear. The pulmonary perez are clear. The imaged osseous structures are intact. IMPRESSION: There is no acute cardiopulmonary disease. <Electronically signed by Eugene Shoemaker > 01/29/21 1236
[2021-01-29] MEDS ORDERED: NIFEdipine 10 MG CAP PO ONE (13:45)
[2021-01-29 14:05] VITALS: BP 216/98
[2021-01-29] MEDS ORDERED: CHLO125TA PO (14:45)
[2021-01-29 15:25] VITALS: BP 187/81
--- NOTE | 2021-01-31 07:28 | ECGEPIP ---
[facility] - ED Test Date: 2021-01-29 Pat Name: MIRI DOSHI Department: Room: - Gender: Male Eye Technician: PATRICIA : 1965 Requested By: Caridad Gil Order Number: [id number] Reading MD: Caridad Gil Measurements Intervals [place] Rate: 69 P: 68 NV: 168 QRS: -31 QRSD: 90 T: 28 QT: 416 QTc: 445 Interpretive Statements Normal sinus rhythm Left axis deviation Inferior infarct , age undetermined Possible Anterior infarct , age undetermined low voltage limb similar 07/16/20 Electronically Signed on 01-31-2021 7:27:36 EDT by Caridad Gil
== END 2021-01-29 15:30 | disposition home or self-care (01) ==
LOC: M ED 10:56
DX: I12.9 Hypertensive chronic kidney disease with stage 1 through stage 4 chronic kidney disease, or unspecified chronic kidney disease (principal); N18.9 Chronic kidney disease, unspecified; Z86.73 Personal history of transient ischemic attack (TIA), and cerebral infarction without residual deficits; E11.9 Type 2 diabetes mellitus without complications; E03.9 Hypothyroidism, unspecified; Z79.899 Other long term (current) drug therapy; Z79.4 Long term (current) use of insulin; Z79.890 Hormone replacement therapy
CPT/HCPCS: 36415; 71046; 80047; 82550; 82553; 84484; 85025; 93005; 96374; 99284; J1940

== ENCOUNTER → 2021-04-19 | Outpatient (CLI) | payer BC, OTHER ==
[~2021-04-19] MED LIST changes: +CHLO125TA PO; +LOSA100T45
[2021-04-19 11:04] LABS: HEMATOCRIT 41.8 % (42.0-52.0); HEMOGLOBIN 13.7 g/dl (13.5-17.5); MEAN CORPUSCULAR HGB CONC 32.8 g/dl (32.0-36.5); MEAN CORPUSCULAR VOLUME 85.5 fl (80.0-96.0); PLATELET COUNT, AUTOMATED 293 10^3/uL (150-450); RED BLOOD COUNT 4.89 10^6/uL (4.30-6.10); WHITE BLOOD COUNT 8.5 10^3/uL (4.0-10.0)
[2021-04-19 11:39] LABS: BILIRUBIN,TOTAL 0.8 MG/DL (0.2-1.0); CALCIUM LEVEL 9.7 MG/DL (8.5-10.1); CHOLESTEROL RISK RATIO 2.564 (<5); CREATININE FOR GFR 1.61 MG/DL (0.70-1.30); GLOMERULAR FILTRATION RATE 47.8 (>56); POTASSIUM SERUM 4.8 MEQ/L (3.5-5.1); TOTAL PROTEIN 7.1 GM/DL (6.4-8.2)
[2021-04-19 11:40] LABS: PROSTATIC SPECIFIC AG MONITOR 0.41 NG/ML (< 4.00); THYROID STIMULATING HORMONE 0.371 uIU/ML (0.358-3.740)
[2021-04-19 13:38] LABS: HEMOGLOBIN A1c 5.9 %
== END ==
LOC: M LAB 10:14
PROVIDERS: ATTEND Family Medicine
DX: I10 Essential (primary) hypertension (principal); E11.9 Type 2 diabetes mellitus without complications; R53.83 Other fatigue; E03.9 Hypothyroidism, unspecified

== ENCOUNTER → 2022-01-15 | Outpatient (CLI) | payer BC, OTHER ==
[~2022-01-15] MED LIST changes: +AMOX875T2 PO; -ASPI-286 PO; +ECOT81TA5 PO; -LOSA100T45; +LOSA100T45 PO; +SM C81CH2 PO
== END ==
LOC: M LABSMTC 09:52
PROVIDERS: ATTEND Anesthesiology
DX: Z01.818 Encounter for other preprocedural examination (principal); Z11.52 Encounter for screening for COVID-19

== ENCOUNTER → 2022-02-23 | Outpatient (CLI) | payer BC, OTHER ==
[~2022-02-23] MED LIST changes: -LEVO125T4; +LEVO125T4 PO
== END ==
LOC: M LABSMTC 10:35
PROVIDERS: ATTEND Anesthesiology
DX: Z01.818 Encounter for other preprocedural examination (principal); Z11.52 Encounter for screening for COVID-19

== ENCOUNTER 2022-02-28 09:39 | Day surgery (SDC) | payer BC, OTHER ==
[~2022-02-28] VITALS: Ht 167.6 cm; Wt 93.9 kg
[~2022-02-28 09:39] MED LIST changes: +NS 1,000 ML IV ONE
[2022-02-28] MEDS ORDERED: LIDOCAINE 2% 100MG/5ML SDV (FOR ANES.) As Ordered ONE (10:48)
[2022-02-28] MEDS ORDERED: propofoL 200 MG/20 ML VIAL As Ordered ONE ×3 (10:48→11:08)
[2022-02-28 11:40] VITALS: BP 134/72
== END 2022-02-28 11:47 | disposition home or self-care (01) ==
LOC: M OPP 09:39
PROVIDERS: ATTEND Internal Medicine Gastroenterology
DX: Z12.11 Encounter for screening for malignant neoplasm of colon (principal); D12.6 Benign neoplasm of colon, unspecified; K64.0 First degree hemorrhoids; K57.30 Diverticulosis of large intestine without perforation or abscess without bleeding; Z79.02 Long term (current) use of antithrombotics/antiplatelets; Z79.1 Long term (current) use of non-steroidal anti-inflammatories (NSAID); Z79.4 Long term (current) use of insulin; Z79.82 Long term (current) use of aspirin; Z79.899 Other long term (current) drug therapy; E11.9 Type 2 diabetes mellitus without complications; L40.50 Arthropathic psoriasis, unspecified; N18.9 Chronic kidney disease, unspecified; Z86.73 Personal history of transient ischemic attack (TIA), and cerebral infarction without residual deficits

== ENCOUNTER 2022-03-03 18:40 | Emergency (ER) | payer BC, OTHER ==
[~2022-03-03] VITALS: Ht 167.6 cm; Wt 96.8 kg
[~2022-03-03 18:40] MED LIST changes: -NS 1,000 ML IV ONE
[2022-03-03 21:12] VITALS: BP 152/82
== END 2022-03-03 21:13 | disposition home or self-care (01) ==
LOC: M ED 18:40
DX: S60.222A Contusion of left hand, initial encounter (principal); E78.5 Hyperlipidemia, unspecified; E11.9 Type 2 diabetes mellitus without complications; I10 Essential (primary) hypertension; Z86.73 Personal history of transient ischemic attack (TIA), and cerebral infarction without residual deficits; Z79.82 Long term (current) use of aspirin; Z79.4 Long term (current) use of insulin; Z79.811 Long term (current) use of aromatase inhibitors; Z79.899 Other long term (current) drug therapy

== ENCOUNTER → 2022-03-12 | Outpatient (CLI) | payer BC, OTHER ==
[~2022-03-12] MED LIST changes: +CLOP75TA99 PO; -PLAV1TAB2 PO
[2022-03-12 12:19] LABS: HEMATOCRIT 42.9 % (42.0-52.0); MEAN CORPUSCULAR HEMOGLOBIN 28.1 pg (27.0-33.0); MEAN CORPUSCULAR HGB CONC 32.6 g/dl (32.0-36.5); MEAN CORPUSCULAR VOLUME 86.1 fl (80.0-96.0); PLATELET COUNT, AUTOMATED 287 10^3/uL (150-450); RED BLOOD COUNT 4.98 10^6/uL (4.30-6.10); WHITE BLOOD COUNT 7.5 10^3/uL (4.0-10.0)
[2022-03-12 13:05] LABS: ALBUMIN 3.9 GM/DL (3.2-5.2); BILIRUBIN,TOTAL 1.5 MG/DL (0.2-1.0); CALCIUM LEVEL 9.6 MG/DL (8.5-10.1); CHOLESTEROL RISK RATIO 2.586 (<5); CREATININE FOR GFR 2.1 MG/DL (0.70-1.30); GLOMERULAR FILTRATION RATE 35.1 (>56); POTASSIUM SERUM 4.3 MEQ/L (3.5-5.1); PROSTATIC SPECIFIC AG MONITOR 0.38 NG/ML (< 4.00); THYROID STIMULATING HORMONE 5.92 uIU/ML (0.358-3.740); TOTAL PROTEIN 7.7 GM/DL (6.4-8.2)
[2022-03-12 15:12] LABS: TOTAL 25(OH) VITAMIN D 29.5 NG/ML (30.0-100.0)
[2022-03-12 18:35] LABS: HEMOGLOBIN A1c 7.7 %
== END ==
LOC: M LAB 10:53
PROVIDERS: ATTEND Family Medicine
DX: I10 Essential (primary) hypertension (principal)

== ENCOUNTER → 2022-04-16 | Outpatient (REF) | payer BC, OTHER ==
[2022-04-16 18:31] LABS: CREATININE, URINE 177.9 MG/DL
[2022-04-16 18:34] LABS: MAU/CREAT RATIO 88.8 MCG/MG (0.0-30.0)
== END ==
LOC: M LAB REF 16:54
PROVIDERS: ATTEND Nurse Practitioner Family
DX: E11.65 Type 2 diabetes mellitus with hyperglycemia (principal)

== ENCOUNTER → 2022-05-14 | Outpatient (CLI) | payer BC, OTHER | LOC: M RAD 12:38 | PROVIDERS: ATTEND Neurological Surgery | DX: I67.1 Cerebral aneurysm, nonruptured (principal); Z53.8 Procedure and treatment not carried out for other reasons ==

== ENCOUNTER → 2022-09-22 | Outpatient (CLI) | payer BC, OTHER ==
[~2022-09-22] MED LIST changes: -LOSA100T45 PO; +LOSA100T46 PO
== END ==
LOC: M RAD 11:22
PROVIDERS: ATTEND Internal Medicine Nephrology
DX: N18.31 Chronic kidney disease, stage 3a (principal)

== ENCOUNTER → 2023-11-13 | Outpatient (CLI) | payer BC ==
[2023-11-13 11:13] LABS: HEMOGLOBIN 14.3 g/dl (13.5-17.5); MEAN CORPUSCULAR HEMOGLOBIN 27.3 pg (27.0-33.0); MEAN CORPUSCULAR HGB CONC 32.5 g/dl (32.0-36.5); MEAN CORPUSCULAR VOLUME 84.1 fl (80.0-96.0); PLATELET COUNT, AUTOMATED 236 10^3/uL (150-450); RED BLOOD COUNT 5.23 10^6/uL (4.30-6.10); WHITE BLOOD COUNT 5.3 10^3/uL (4.0-10.0)
[2023-11-13 11:37] LABS: BILIRUBIN,TOTAL 1.2 MG/DL (0.3-1.2); CALCIUM LEVEL 9.1 MG/DL (8.5-10.1); CHOLESTEROL RISK RATIO 2.9 (<5); CREATININE FOR GFR 1.93 MG/DL (0.70-1.30); GLOMERULAR FILTRATION RATE 38.4 (>56); HDL CHOLESTEROL 37.5 MG/DL (>40); LDL CHOLESTEROL 57.7 MG/DL (<100); NON-HDL-C 71.5 MG/DL; POTASSIUM SERUM 4.3 MMOL/L (3.5-5.1); TOTAL PROTEIN 6.9 G/DL (5.7-8.2)
[2023-11-13 11:39] LABS: PROSTATIC SPECIFIC AG MONITOR 0.28 NG/ML (< 4.00)
[2023-11-13 11:43] LABS: THYROID STIMULATING HORMONE 2.877 uIU/ML (0.55-4.78); TOTAL 25(OH) VITAMIN D 48.4 NG/ML (20.0-100.0)
[2023-11-13 13:12] LABS: HEMOGLOBIN A1c 6.3 % (4.0-6.0)
== END ==
LOC: M RAD 10:01
PROVIDERS: ATTEND Family Medicine
DX: R53.83 Other fatigue (principal); I10 Essential (primary) hypertension; E03.9 Hypothyroidism, unspecified

== ENCOUNTER → 2023-12-02 | Outpatient (CLI) | payer BC, OTHER | LOC: M RAD 09:19 | PROVIDERS: ATTEND Internal Medicine Nephrology | DX: N18.31 Chronic kidney disease, stage 3a (principal); I21.9 Acute myocardial infarction, unspecified ==

== ENCOUNTER → 2024-02-24 | Outpatient (CLI) | payer BC ==
[2024-02-24 13:56] LABS: CALCIUM LEVEL 9.4 MG/DL (8.5-10.1); CREATININE FOR GFR 2.31 MG/DL (0.70-1.30); GLOMERULAR FILTRATION RATE 31.2 (>56); POTASSIUM SERUM 4.9 MMOL/L (3.5-5.1)
== END ==
LOC: M LAB 11:29
PROVIDERS: ATTEND Nurse Practitioner Family
DX: E11.65 Type 2 diabetes mellitus with hyperglycemia (principal); N18.9 Chronic kidney disease, unspecified; E11.22 Type 2 diabetes mellitus with diabetic chronic kidney disease

== ENCOUNTER 2024-03-28 13:26 | Emergency (ER) | payer BC ==
[~2024-03-28] VITALS: Ht 167.6 cm; Wt 103.9 kg
[2024-03-28 13:28] VITALS: O2SAT 97
[2024-03-28] MEDS ORDERED: NOVOINJ3 (13:31)
[2024-03-28] MEDS ORDERED: LOSA50TA28 (13:31)
[2024-03-28] MEDS ORDERED: FARX1TAB5 (13:31)
[2024-03-28 13:46] VITALS: BP 136/64; TEMP 96.9
[2024-03-28] MEDS: BOOSTRIX VACCINE (TETANUS/DIPHTH/ACEL. PERTUSSIS) 0.5ML SYR IM.IMMUN ONE (15:30)
[2024-03-28] MEDS: DERMABOND TOPICAL SKIN ADHESIVE TOP ONE (15:31)
== END 2024-03-28 15:58 | disposition home or self-care (01) ==
LOC: M ED 13:26
DX: S61.213A Laceration without foreign body of left middle finger without damage to nail, initial encounter (principal); W25.XXXA Contact with sharp glass, initial encounter; E11.9 Type 2 diabetes mellitus without complications; I10 Essential (primary) hypertension; Z23 Encounter for immunization; Y92.89 Other specified places as the place of occurrence of the external cause; Y93.89 Activity, other specified; Y99.9 Unspecified external cause status; Z79.82 Long term (current) use of aspirin; Z79.02 Long term (current) use of antithrombotics/antiplatelets; Z79.4 Long term (current) use of insulin; Z79.899 Other long term (current) drug therapy